=== PATIENT | female | born 2000 | race Caucasian/White ===

== ENCOUNTER 2023-05-29 22:09 | Inpatient (IN) | payer OTHER ==
[~2023-05-29] VITALS: Ht 157.5 cm; Wt 68.9 kg
[2023-05-29 22:49] VITALS: BP 117/58; PULSE 113; RESP 20; TEMP 100.1; O2SAT 97
[2023-05-29] MEDS ORDERED: NACL 0.9% 1,000 ML IV ONE (23:05)
[2023-05-29 23:23] LABS: BASOPHILS % (AUTO) 0.2 % (0.0-2.0); EOSINOPHILS % (AUTO) 0.1 % (0.0-4.0); HEMATOCRIT 31.5 % (36-48); HEMOGLOBIN 10.9 g/dL (12.0-16.0); LYMPHOCYTES # (AUTO) 1.3 K/uL (2.5-16.5); LYMPHOCYTES % (AUTO) 8.4 % (20.5-51.1); MEAN CORPUSCULAR HEMOGLOBIN 30 pg (27-31); MEAN CORPUSCULAR HGB CONC 35 g/dL (33-37); MEAN CORPUSCULAR VOLUME 87.7 fL (80-94); MONOCYTES # (AUTO) 1.1 K/uL (0.8-1.0); MONOCYTES % (AUTO) 7.4 % (1.7-9.3); NEUTROPHILS # (AUTO) 12.7 K/uL (1.8-7.7); NEUTROPHILS % (AUTO) 83.9 % (42.2-75.2); PLATELET COUNT (AUTO) 334 K/uL (140-450); RED CELL DISTRIBUTION WIDTH 12.4 % (11.6-13.7); WHITE BLOOD COUNT (AUTO) 15.1 K/uL (4.8-10.8)
[2023-05-29 23:27] LABS: APPEARANCE,URINE CLEAR (CLEAR); BILIRUBIN,URINE NEGATIVE (NEGATIVE); BLOOD, URINE TRACE-I (NEGATIVE); COLOR,URINE YELLOW (YELLOW); LEUKOCYTE ESTERASE ,URINE NEGATIVE (NEGATIVE); NITRITE, URINE NEGATIVE (NEGATIVE); PROTEIN,URINE TRACE (NEGATIVE); UGLUCOSE NEGATIVE (NEGATIVE)
[2023-05-29] MEDS ORDERED: cefTRIAXone 1,000 MG VIAL ONE (23:29)
[2023-05-29 23:31] LABS: BACTERIA,URINE 10-30 (MOD) /HPF (None Seen); MUCUS,URINE 1+ /LPF (None Seen)
[2023-05-29 23:44] LABS: ALBUMIN 2.5 g/dL (3.4-5.0); ANION GAP 15.7 (8-16); CREATININE 0.8 mg/dL (0.6-1.3); POTASSIUM 3.7 mmol/L (3.5-5.1); TOTAL BILIRUBIN 0.4 mg/dL (0.0-1.0); TOTAL PROTEIN, SERUM 6.9 g/dL (6.4-8.2)
[2023-05-30] MEDS ORDERED: INSU100I15 SQ (01:03)
[2023-05-30] MEDS ORDERED: INSU100I7 SQ (01:03)
[2023-05-30] MEDS ORDERED: POTASSIUM CHLORIDE 10 MEQ TABER PO PRN (01:10)
[2023-05-30] MEDS ORDERED: KCL 20 MEQ IN 100 mL PREMIX 200 ML IV PRN (01:10)
[2023-05-30] MEDS ORDERED: MAG SULF 2000 MG/WATER PREMIX 50 ML IV PRN (01:10)
[2023-05-30] MEDS ORDERED: MAGNESIUM OXIDE 400 MG TAB PO PRN (01:10)
[2023-05-30] MEDS: NACL 0.9% 1,000 ML IV SCH ×4 (01:51→23:04)
[2023-05-30] MEDS: ACETAMINOPHEN 325 MG TAB PO PRN ×2 (02:21→15:22)
[2023-05-30] MEDS ORDERED: NACL 0.9% 1,000 ML IV SCH (08:15)
[2023-05-30] MEDS ORDERED: ALBUMIN HUMAN 25% 100 ML IV SCH (08:18)
[2023-05-30] MEDS: INSULIN LANTUS 100 UNITS/ML 10 ML VIAL SUBQ SCH (11:45)
[2023-05-30] MEDS ORDERED: DEXTROSE 50% 50 ML SYR IVP PRN (11:45)
[2023-05-30] MEDS: BLOOD GLUCOSE MONITORING 1 DEV DEV FS SCH ×3 (12:27→20:58)
[2023-05-30 14:40] VITALS: O2SAT 98
[2023-05-30 15:15] VITALS: PULSE 109
[2023-05-30 15:38] VITALS: BP 109/43; PULSE 110; RESP 18; TEMP 99.3; O2SAT 98
[2023-05-30 16:00] VITALS: BP 106/47; PULSE 101; PULSE 107; RESP 18; TEMP 99; O2SAT 98
[2023-05-30] MEDS: INSULIN LISPRO SLIDING SCALE 100 UNITS/ML VIAL SUBQ PRN ×2 (16:57→20:57)
[2023-05-30 20:00] VITALS: BP 105/63; PULSE 88; PULSE 90; RESP 18; TEMP 96; O2SAT 98; O2SAT 99
[2023-05-31] VITALS (9 sets, daily range): BP systolic 94–105; BP diastolic 50–67; PULSE 85–98; RESP 16–18; TEMP 96.9–98; O2SAT 96–99
[2023-05-31] MEDS: BLOOD GLUCOSE MONITORING 1 DEV DEV FS SCH ×4 (06:33→20:18)
[2023-05-31 07:10] LABS: BASOPHILS % (AUTO) 0.2 % (0.0-2.0); EOSINOPHILS # (AUTO) 0.1 K/uL (0-0.4); EOSINOPHILS % (AUTO) 0.4 % (0.0-4.0); HEMATOCRIT 29.5 % (36-48); LYMPHOCYTES # (AUTO) 1.7 K/uL (2.5-16.5); LYMPHOCYTES % (AUTO) 13.4 % (20.5-51.1); MEAN CORPUSCULAR HEMOGLOBIN 31 pg (27-31); MEAN CORPUSCULAR HGB CONC 34 g/dL (33-37); MEAN CORPUSCULAR VOLUME 89.6 fL (80-94); MONOCYTES # (AUTO) 0.7 K/uL (0.8-1.0); MONOCYTES % (AUTO) 5.1 % (1.7-9.3); NEUTROPHILS # (AUTO) 10.5 K/uL (1.8-7.7); NEUTROPHILS % (AUTO) 80.9 % (42.2-75.2); PLATELET COUNT (AUTO) 261 K/uL (140-450); RED BLOOD CELL COUNT(AUTO) 3.29 MIL/uL (4.20-5.40)
[2023-05-31 07:54] LABS: PHOSPHORUS 2.4 mg/dL (2.5-4.9)
[2023-05-31 07:57] LABS: CREATININE 0.6 mg/dL (0.6-1.3); POTASSIUM 3.6 mmol/L (3.5-5.1)
[2023-05-31 08:01] LABS: ANION GAP 14.7 (8-16); CALCIUM 8.5 mg/dL (8.5-10.1); CARBON DIOXIDE 18.9 mmol/L (21-32)
[2023-05-31] MEDS: INSULIN LANTUS 100 UNITS/ML 10 ML VIAL SUBQ SCH (08:57)
[2023-05-31] MEDS: NACL 0.9% 1,000 ML IV SCH ×2 (09:37→20:18)
[2023-05-31] MEDS: INSULIN LISPRO SLIDING SCALE 100 UNITS/ML VIAL SUBQ PRN ×2 (11:21→16:33)
[2023-06-01] VITALS (7 sets, daily range): BP systolic 90–99; BP diastolic 50–64; PULSE 69–88; RESP 16–18; TEMP 96.4–97.7; O2SAT 96–99
[2023-06-01] MEDS: BLOOD GLUCOSE MONITORING 1 DEV DEV FS SCH ×4 (06:47→20:15)
[2023-06-01] MEDS: INSULIN LISPRO SLIDING SCALE 100 UNITS/ML VIAL SUBQ PRN ×2 (06:56→20:15)
[2023-06-01 07:17] LABS: ANION GAP 12.9 (8-16); CARBON DIOXIDE 21.5 mmol/L (21-32); CREATININE 0.5 mg/dL (0.6-1.3); POTASSIUM 3.4 mmol/L (3.5-5.1)
[2023-06-01 07:18] LABS: MAGNESIUM 1.8 mg/dL (1.8-2.4); PHOSPHORUS 3.1 mg/dL (2.5-4.9)
[2023-06-01 07:37] LABS: BASOPHILS % (AUTO) 0.2 % (0.0-2.0); EOSINOPHILS # (AUTO) 0.1 K/uL (0-0.4); EOSINOPHILS % (AUTO) 0.6 % (0.0-4.0); HEMATOCRIT 23.7 % (36-48); HEMOGLOBIN 8.2 g/dL (12.0-16.0); LYMPHOCYTES # (AUTO) 1.6 K/uL (2.5-16.5); LYMPHOCYTES % (AUTO) 18.9 % (20.5-51.1); MEAN CORPUSCULAR HEMOGLOBIN 31 pg (27-31); MEAN CORPUSCULAR HGB CONC 35 g/dL (33-37); MEAN CORPUSCULAR VOLUME 89.3 fL (80-94); MONOCYTES # (AUTO) 0.5 K/uL (0.8-1.0); MONOCYTES % (AUTO) 5.3 % (1.7-9.3); NEUTROPHILS # (AUTO) 6.4 K/uL (1.8-7.7); PLATELET COUNT (AUTO) 268 K/uL (140-450); RED BLOOD CELL COUNT(AUTO) 2.66 MIL/uL (4.20-5.40); RED CELL DISTRIBUTION WIDTH 12.6 % (11.6-13.7); WHITE BLOOD COUNT (AUTO) 8.6 K/uL (4.8-10.8)
[2023-06-01] MEDS: INSULIN LANTUS 100 UNITS/ML 10 ML VIAL SUBQ SCH (09:08)
[2023-06-01] MEDS: NACL 0.9% 1,000 ML IV SCH (12:02)
[2023-06-02] VITALS: BP 93/56; PULSE 75; PULSE 78; RESP 18; TEMP 97.3; O2SAT 97
[2023-06-02] MEDS: NACL 0.9% 1,000 ML IV SCH (03:09)
[2023-06-02 04:00] VITALS: BP 92/62; PULSE 73; PULSE 74; RESP 16; TEMP 98.1; O2SAT 96
[2023-06-02 06:39] LABS: CALCIUM 8.2 mg/dL (8.5-10.1); CARBON DIOXIDE 22.9 mmol/L (21-32); CREATININE 0.5 mg/dL (0.6-1.3); POTASSIUM 3.9 mmol/L (3.5-5.1)
[2023-06-02] MEDS: BLOOD GLUCOSE MONITORING 1 DEV DEV FS SCH ×2 (06:42→11:18)
[2023-06-02] MEDS: INSULIN LISPRO SLIDING SCALE 100 UNITS/ML VIAL SUBQ PRN ×2 (06:44→11:27)
[2023-06-02] MEDS ORDERED: MIDODRINE 5 MG TAB PO SCH (07:00)
[2023-06-02 07:03] LABS: MAGNESIUM 1.9 mg/dL (1.8-2.4); PHOSPHORUS 3.8 mg/dL (2.5-4.9)
[2023-06-02 07:22] LABS: BASOPHILS % (AUTO) 0.2 % (0.0-2.0); EOSINOPHILS # (AUTO) 0.1 K/uL (0-0.4); EOSINOPHILS % (AUTO) 1.1 % (0.0-4.0); HEMATOCRIT 25.5 % (36-48); HEMOGLOBIN 8.9 g/dL (12.0-16.0); LYMPHOCYTES # (AUTO) 1.7 K/uL (2.5-16.5); LYMPHOCYTES % (AUTO) 26.9 % (20.5-51.1); MEAN CORPUSCULAR HEMOGLOBIN 31 pg (27-31); MEAN CORPUSCULAR HGB CONC 35 g/dL (33-37); MEAN CORPUSCULAR VOLUME 89.5 fL (80-94); MONOCYTES # (AUTO) 0.4 K/uL (0.8-1.0); MONOCYTES % (AUTO) 5.9 % (1.7-9.3); NEUTROPHILS # (AUTO) 4.2 K/uL (1.8-7.7); NEUTROPHILS % (AUTO) 65.9 % (42.2-75.2); PLATELET COUNT (AUTO) 264 K/uL (140-450); RED BLOOD CELL COUNT(AUTO) 2.85 MIL/uL (4.20-5.40); RED CELL DISTRIBUTION WIDTH 12.6 % (11.6-13.7); WHITE BLOOD COUNT (AUTO) 6.4 K/uL (4.8-10.8)
[2023-06-02 08:00] VITALS: BP 98/45; PULSE 69; PULSE 78; RESP 18; TEMP 97.3; O2SAT 97; O2SAT 98
[2023-06-02] MEDS: INSULIN LANTUS 100 UNITS/ML 10 ML VIAL SUBQ SCH (09:00)
[2023-06-02] MEDS ORDERED: CEPH250C16 PO (11:35)
[2023-06-02 12:59] VITALS: BP 93/45; PULSE 98; RESP 69; TEMP 97.3
== END 2023-06-02 14:20 | disposition home or self-care (01) | DRG 566 ==
LOC: MED 22:09 → MTU 05-30 01:10
PROVIDERS: ADMIT Student in an Organized Health Care Education/Training Program; ATTEND Student in an Organized Health Care Education/Training Program
DX: O98.812 Other maternal infectious and parasitic diseases complicating pregnancy, second trimester (principal); A41.59 Other Gram-negative sepsis; D84.9 Immunodeficiency, unspecified; E86.1 Hypovolemia; E87.1 Hypo-osmolality and hyponatremia; O23.02 Infections of kidney in pregnancy, second trimester; R64 Cachexia; O99.891 Other specified diseases and conditions complicating pregnancy; R65.20 Severe sepsis without septic shock; B96.89 Other specified bacterial agents as the cause of diseases classified elsewhere; O99.282 Endocrine, nutritional and metabolic diseases complicating pregnancy, second trimester; O25.12 Malnutrition in pregnancy, second trimester; Z3A.20 20 weeks gestation of pregnancy; Z68.27 Body mass index [BMI] 27.0-27.9, adult
CPT/HCPCS: 36415; 76770; 80048; 80053; 81001; 82948; 83735; 84100; 85025; 87040; 87081; 87086; 96365; 99285; J0696; J1644; J1815; J7060; P9046; Q0092